=== PATIENT | male | born 1970 | race Caucasian/White ===

== ENCOUNTER 2019-04-24 05:50 | Day surgery (SDC) | payer OTHER ==
[~2019-04-24] VITALS: Ht 177.8 cm; Wt 108.9 kg
[~2019-04-24 05:50] MED LIST: COLESTID1 GM PO; DELZICOL400 MG PO; DEXILANT60 MG PO; FLAGYL500 MG PO; HYDROCHLOROTH12.5 MG PO; LOSARTAN POTAS100 MG PO; MEN'S ONE DAIL1 EACH PO; POTASSIUM CHLO20 ME1 PO; PREDNISONE20 MG PO; RANITIDINE HCL150 M1 PO; RANITIDINE HCL150 MG PO; SYNTHROID200 MCG PO; VITAMIN C60 MG PO; ZYRTEC10 MG PO
[2019-04-24] MEDS ORDERED: TYLENOL EXTRA500 MG PO (09:12)
[2019-04-24] MEDS ORDERED: IBUPROFEN600 MG PO (09:12)
--- NOTE | 2019-04-24 09:45 | NUR ---
04/24/19 0945 Malika Clark 0900 PT ARRIVED IN PACU SLEEPY WITH NO C/O'S. DRSG'S TO ABD CDI. 0915 DR AT BEDSIDE TALKING TO PT. NO C/O'S. 0930 PT GETTING DRESSED WITH AT BEDSIDE. DC INSTRUCTIONS GIVEN. ALL QUESTIONS ANSWERED. 0940 LEFT VIA W/C WITH VOLUNTEER.
--- NOTE | 2019-04-24 12:45 | NUR ---
PT ALERT, ORIENTED AND SUPPORTED BY HIS BARRON AT . PT SEEMS PREPARED, ALITTLE ANXIOUS. PT REQUESTED PRAYER, WILL FOLLOW NEEDED
--- NOTE | 2019-04-25 10:24 | OR ---
[facility] [address] [place], [place] [address] Signed DATE OF OPERATION: 04/24/2019 SURGEON: Toña Gonzales MD PREOPERATIVE DIAGNOSIS: Multiple soft tissue masses, abdominal wall and also right hip. POSTOPERATIVE DIAGNOSIS: Multiple soft tissue masses, abdominal wall and also right hip, likely lipomas. PROCEDURE: Excision of abdominal wall soft tissue mass x3 (4 cm, 4 cm, and 2.5 cm) and right lateral hip soft tissue mass lipoma (2.5 cm). ANESTHESIA: Local with monitored anesthesia care; Umer Ruiz CRNA. INDICATION: This 49-year-old white man is a patient of Dr. Iesha Carslon and well known to me from the past having undergone surgery for thyroid cancer. Additionally, he was considered to have inflammatory bowel disease. He has noted some soft tissue masses on the abdominal wall, which were rather uncomfortable for him. The most dominant lesions of concern are on the left mid abdomen anteriorly, the right paraumbilical area, right upper quadrant area, and in the right lateral hip area. All were consistent with lipomas, but none are of certain diagnosis. Given the painful nature of the lesions, he has been offered excision. He understands, as does his the risks of bleeding, infection, recurrence, and other unforeseen complications and wished to proceed. FINDINGS: Propofol infusional sedation was quite adequate in conjunction with local anesthetic to allow for excision in a pain-free manner. All the lesions were excised completely and all turned out to be consistent with lipomas. Lipoma size was 4 cm, 4 cm, 2.5 cm, and 2 cm. DESCRIPTION OF PROCEDURE: The patient was brought to the operating room, placed in the supine position, given intravenous sedation by the dinkey operator slag with propofol infusional technique. The abdomen and right lateral hip were clipped and prepared with a chlorhexidine type solution. All of the lesions in question were previously marked. Local anesthetic with 0.25% Marcaine was injected transversely in the subdermal space. Incision in the right subcostal area Electronically Signed By: TOÑA GONZALES MD 04/25/19 1024 PATIENT NAME: ADRIANA MO OPERATIVE REPORT DATE OF : 72 REPORT #: [id number] PHYSICIAN: TOÑA GONZALES MD PCP: IESHA CARLSON MD REPORT IS CONFIDENTIAL AND NOT TO BE RELEASED WITHOUT AUTHORIZATION [facility] [address] [place], [place] [address] Signed was undertaken; incision of about 3 cm in size. Dissection carried through the dermis into the subcutaneous space with shelling out with a hemostat of a well-circumscribed lipomatous type mass. Complete excision was accomplished. Electrocautery was used for hemostasis. This lesion was designated as a right subcostal lesion. Next, a transverse incision was made over a larger right paraumbilical soft tissue mass. Dissection carried through the dermis similarly and with blunt dissection, extirpation of a smooth lipomatous mass of approximately 4 cm x 4 cm in size was removed. Electrocautery was again used for hemostasis. The left upper quadrant mid abdomen lesion was similarly excised. Excision size was about 4 cm. Lesion excised was also consistent with lipoma. The right lateral hip lesion was incised longitudinally along the line of skin tension and extended to about 2.5 cm. It too had an underlying lipomatous mass, which was shelled out. All wounds were secured for hemostasis with electrocautery. Skin was then closed with interrupted 3-0 Vicryl. Steri-Strips were applied, as was a single OpSite dressing to each site. The patient was allowed to emerge from sedation and taken to recovery room in good condition, having suffered no complications. Sponge, needle, and instrument counts were reported as correct x3. MD RIANNA Purvis/MODL /[id number] cc: Iesha Carlson MD Copies: IESHA CARLSON MD ~ Electronically Signed By: TOÑA GONZALES MD 04/25/19 1024 PATIENT NAME: ADRIANA MO OPERATIVE REPORT DATE OF : 72 REPORT #: [id number] PHYSICIAN: TOÑA GONZALES MD PCP: IESHA CARLSON MD REPORT IS CONFIDENTIAL AND NOT TO BE RELEASED WITHOUT AUTHORIZATION
== END 2019-04-24 09:40 | disposition home or self-care (01) ==
LOC: OPS 05:50 → DS 05:50 → OPS 06:45 → DS 06:45 → OPS 09:40
PROVIDERS: Surgery
PROC: 0JB80ZZ Excision of Abdomen Subcutaneous Tissue and Fascia, Open Approach (ICD-10-PCS; 2019-04-24)
PROC: 0JB80ZZ Excision of Abdomen Subcutaneous Tissue and Fascia, Open Approach (ICD-10-PCS; 2019-04-24)
PROC: 0JBL0ZZ Excision of Right Upper Leg Subcutaneous Tissue and Fascia, Open Approach (ICD-10-PCS; 2019-04-24)
PROC: 0JB80ZZ Excision of Abdomen Subcutaneous Tissue and Fascia, Open Approach (ICD-10-PCS; principal; 2019-04-24 06:45)
DX: D21.4 Benign neoplasm of connective and other soft tissue of abdomen (principal); I10 Essential (primary) hypertension; K21.0 Gastro-esophageal reflux disease with esophagitis; E66.3 Overweight; G47.33 Obstructive sleep apnea (adult) (pediatric); Z91.041 Radiographic dye allergy status; Z79.899 Other long term (current) drug therapy
CPT/HCPCS: J0690; J1644; J7120

== ENCOUNTER 2022-01-08 08:17 | Emergency (ER) | payer OTHER ==
[~2022-01-08] VITALS: Ht 177.8 cm; Wt 122.0 kg
[~2022-01-08 08:17] MED LIST changes: +IBUPROFEN600 MG PO; +TYLENOL EXTRA500 MG PO
[2022-01-08] MEDS ORDERED: METOPROLOL SUC100 MG PO (08:45)
[2022-01-08] MEDS ORDERED: PILOCARPINE HCL5 MG PO (08:46)
[2022-01-08] MEDS ORDERED: MESALAMINE DR400 MG PO (08:46)
[2022-01-08] MEDS ORDERED: RESTASIS1 DROP OD (08:46)
[2022-01-08] MEDS ORDERED: COLESTIPOL HCL1 GM PO (08:47)
[2022-01-08] MEDS ORDERED: SPIRONOLACTONE25 MG PO (08:47)
[2022-01-08] MEDS ORDERED: HYDROCHLOROTH12.5 MG PO (08:47)
== END 2022-01-08 09:30 | disposition home or self-care (01) ==
LOC: ED 08:17
DX: S83.92XA Sprain of unspecified site of left knee, initial encounter (principal); I10 Essential (primary) hypertension; Z91.013 Allergy to seafood; Z91.048 Other nonmedicinal substance allergy status; Z79.899 Other long term (current) drug therapy; X50.1XXA Overexertion from prolonged static or awkward postures, initial encounter
CPT/HCPCS: 73560; 99283-25

== ENCOUNTER 2022-05-14 05:45 | Day surgery (SDC) | payer OTHER ==
[~2022-05-14] VITALS: Ht 177.8 cm; Wt 129.5 kg
[~2022-05-14 05:45] MED LIST changes: +COLESTIPOL HCL1 GM PO; +MESALAMINE DR400 MG PO; +METOPROLOL SUC100 MG PO; +PILOCARPINE HCL5 MG PO; +RESTASIS1 DROP OD; +SPIRONOLACTONE25 MG PO
[2022-05-14] MEDS ORDERED: LOTEMAX5 GM OPTH (05:58)
[2022-05-14] MEDS ORDERED: VITAMIN D325 MC2 PO (06:01)
[2022-05-14] MEDS ORDERED: HYDROCODON-ACE1 EA10 PO (07:46)
[2022-05-14] MEDS ORDERED: DICLOFENAC SODI75 MG PO (07:46)
--- NOTE | 2022-05-14 07:51 | NUR ---
05/14/22 0751 Aaliyah Tuttle 0747- PT ARRIVES TO PACU REACTIVE TO STIMULI. PT IS ABLE TO ANSWER QUESTIONS AND FOLLOW COMMANDS. RESP EVEN AND UNLABORED. OXYGEN SAT HIGH 90'S ON 8L VIA MASK. PT'S HEAD OF BED SLIGHTLY INCREASED. ICE PACK APPLIED TO PT'S LEFT KNEE WITH DRESSING IN BETWEEN SKIN AND ICE PACK.
--- NOTE | 2022-05-14 09:01 | NUR ---
LE 0840: THIS RN GOES TO PACU TO GET REPORT ON THIS PT. HE IS CURRENTLY ON CPAP WITH 4L OXYGEN BLEED IN. LE 0845: PT IS BACK TO DS FROM PACU. HE IS PUT BACK ON O2 MONITOR AND HE IS SATING AT 94-95% ON RA. AT THIS TIME A ROOM AIR TRIAL WILL BE DONE TO SEE HOW HE DOES WITH CONSTANT STIMULATION FROM AT THE BEDSIDE. CALL LIGHT IS WITHIN REACH. WATER IS ON BEDSIDE TABLE. DC CRITERIA IS REVEIWED WITH PT AND SPOUSE. NO ADDITIONAL NEEDS OR CONCERNS AT THIS TIME.
--- NOTE | 2022-05-14 09:47 | NUR ---
PT IS DOING WELL. HE REPORTS NO CHANGE IN PAIN LEVEL, BUT STATES THAT IT IS TOLERABLE AT A 4 AND IS NOT NEEDING PAIN MEDS. REMAINS AT THE BEDSIDE. HE TOLERATING WATER AND PUDDING. CALL LIGHT WITHIN REACH. NO ADDITIONAL NEEDS OR CONCERNS AT THIS TIME.
--- NOTE | 2022-05-14 10:27 | NUR ---
ALEJANDRO 1025: PT IS ASSITED UP OOB WITH STANDBY ASSIST. HE WOULD LIKE TO USE THE RESTROOM. HE IS ABLE TO ABMULATE HIMSELF WELL WITH MINIMAL ASSIST. HE IS ABLE TO VOID 200MLS. HE REPORTS PAIN A 4/10. HE INDICATES THAT HE WOULD LIKE TO GO HOME AT THIS TIME. HE IS EDUCATED ON HOW TO BEST DRESS HIMSELF.
--- NOTE | 2022-05-14 10:51 | NUR ---
LE 1035: PT IS GIVEN VERBAL AND WRITTEN DC INSTRUCTIONS WITH HIS AT THE BEDSIDE. QUESTIONS ARE ASKED AND ANSWERED. PT IS TAKEN TO PERSONAL VEHICLE VIA WC, WHERE HE IS ABLE TO TRANSFER HIMSELF WITHOUT ISSUES.
--- NOTE | 2022-05-15 08:50 | OR ---
[facility] [place] [facility] [address] [place], [place] [address] Signed DATE OF OPERATION: 05/14/2022 SURGEON: Shalonda Zurita MD PREOPERATIVE DIAGNOSIS: Medial meniscus tear, left knee. POSTOPERATIVE DIAGNOSIS: Medial meniscus tear, left knee. PROCEDURE PERFORMED: Left knee arthroscopy with partial medial meniscectomy. SUGGESTION CLERK: None. ANESTHESIA: General. BLOOD LOSS: Minimal. BRIEF HISTORY: Santi is a 52-year-old gentleman with pain and occasional giving out his knee. MRI was consistent with medial meniscus tear. Risks and benefits of operative treatment were discussed with him, he elected to proceed. Once consent was obtained, he was taken to the operating room. After adequate anesthesia he was placed on operating table, all downside pressure points well padded. Right leg was flexed, abducted and externally rotated on a well-padded leg wan. The left was placed in well-padded proximal thigh leg wan with no tourniquet. The leg was then prepped and draped in a standard sterile fashion. The portal sites were injected with 0.25% Marcaine with epinephrine. Standard inferolateral and superolateral portals were made. The scope was introduced into the knee. ARTHROSCOPIC FINDINGS: There was extensive synovitis that was quite friable. The chondral surfaces were intact except one soft spot in the medial femoral condyle. The ACL and PCL were intact. Lateral compartment was intact. Medial compartment showed a small complex tear in the posterior medial horn. It was about a cm and half long. Electronically Signed By: SHALONDA ZURITA MD 05/15/22 0850 PATIENT NAME: SANTI MO OPERATIVE REPORT DATE OF : 72 REPORT #: [id number] PHYSICIAN: SHALONDA ZURITA MD PCP: IESHA BRISCOE MD REPORT IS CONFIDENTIAL AND NOT TO BE RELEASED WITHOUT AUTHORIZATION [facility] [place] [facility] [address] [place] [id number] Signed DESCRIPTION OF PROCEDURE: Diagnostic arthroscopy was undertaken as noted above. The medial portal was established using needle localization. The menisci on both sides were palpated. The tear was located and using straight biter and shaver, the tear was trimmed back to a stable rim anteriorly and posteriorly. This was then smoothed using shaver and all debris was evacuated. There were no other chondral lesions, so the scope was withdrawn. Portals were closed with 3-0 nylon and the knee was injected with 60 mg Toradol. The wounds were dressed with Adaptic, ABD, and Nathanael wrap. He tolerated the procedure well. All sponge, needle, and instrument counts were correct. Shalonda Zurita MD BA/CHARLES /[id number] Copies: ~ Electronically Signed By: SHALONDA ZURITA MD 05/15/22 0850 PATIENT NAME: SANTI MO OPERATIVE REPORT DATE OF : 72 REPORT #: [id number] PHYSICIAN: SHALONDA ZURITA MD PCP: IESHA BRISCOE MD REPORT IS CONFIDENTIAL AND NOT TO BE RELEASED WITHOUT AUTHORIZATION
== END 2022-05-14 10:40 | disposition home or self-care (01) ==
LOC: DS 05:45
PROVIDERS: ATTEND Specialist
PROC: 0SBD4ZZ Excision of Left Knee Joint, Percutaneous Endoscopic Approach (ICD-10-PCS; principal; 2022-05-14 06:45)
DX: S83.232A Complex tear of medial meniscus, current injury, left knee, initial encounter (principal); M65.9 Synovitis and tenosynovitis, unspecified; I10 Essential (primary) hypertension; K21.9 Gastro-esophageal reflux disease without esophagitis; G47.33 Obstructive sleep apnea (adult) (pediatric); E89.0 Postprocedural hypothyroidism; X58.XXXA Exposure to other specified factors, initial encounter; Z88.8 Allergy status to other drugs, medicaments and biological substances
CPT/HCPCS: J0330; J0690; J1100; J1885; J2250; J2405; J2704; J7121